=== PATIENT | male | born 1980 | race Caucasian/White ===

== ENCOUNTER 2016-08-01 14:24 | Emergency (ER) | payer OTHER ==
[~2016-08-01] VITALS: Ht 190.5 cm; Wt 132.7 kg
[~2016-08-01 14:24] MED LIST: ACETAMINOPHEN650 M7 PO; ALLOPURINOL100 MG PO; ALLOPURINOL300 MG PO; ATARAX,VISTARIL50 MG PO; BACTRIM,SEPT1 TABLET PO; BENTYL10 MG PO; BENTYL20 MG PO; CARAFATE1 GM PO; CLEOCIN300 MG PO; DESYREL100 MG PO; EFFEXOR; EFFEXOR XR150 MG PO; Effexor XR PO; FIORICET,ESG1 TABLET PO; HYDROCODON-ACE1 EA13; IBUPROFEN400 MG PO; IBUPROFEN600 MG PO; IBUPROFEN800 MG PO; LITHIUM; LITHIUM CARBON300 M1 PO; LODINE300 MG PO; LOSARTAN POTASS50 MG PO; METOPROLOL PO; MICARDIS40 MG PO; MOTRIN600 MG PO; MOTRIN800 MG PO; NAPROSYN500 MG PO; NORCO 5/3251 TABLET PO; NORFLEX100 MG; OMEPRAZOLE20 MG PO; OMEPRAZOLE40 M1 PO; PREDNISONE10 MG PO; PROMETHAZINE HC25 M1 PO; PROTONIX40 MG PO; RANITIDINE HCL150 MG PO; ROBITUSSIN AC,T10 ML PO; ROBITUSSIN COUGH; TEGRETOL200 MG PO; TRAMADOL HCL50 MG PO; TYLENOL REGULA325 MG PO; ULTRAM50 MG PO; VALIUM5 MG PO; VIBRAMYCIN100 MG PO; VICODIN 5-3001 EACH PO; VICODIN 5-5001 EACH PO; ZITHROMAX Z-PA250 MG PO; ZOFRAN ODT4 MG PO; ZOFRAN ODT8 MG PO; ZYLOPRIM100 MG PO
[2016-08-01 17:40] LABS: HEMATOCRIT 47.1 % (38.0-50.0); MCH 28.8 PG (29.0-34.0); MCHC 33.8 G/DL (30.0-36.0); MCV 85.3 FL (86-99); MEAN PLAT.VOLUME 9.8 uM^3 (9.0-12.4); PLATELET COUNT 208 K/uL (156-360); RBC DIS.WIDTH-CV 12.9 % (11.8-14.6); RBC DIS.WIDTH-SD 39.9 % (39-53); RED BLOOD COUNT 5.52 M/uL (4.00-5.50); WHITE BLOOD COUNT 8.7 K/uL (4.1-10.2)
[2016-08-01 17:49] LABS: CHLORIDE 102 mEq/L (99-109); POTASSIUM 3.8 mEq/L (3.7-5.4); SODIUM 139 mEq/L (136-147)
[2016-08-01 17:50] LABS: GLUCOSE 98 mg/dL (70-99)
[2016-08-01 17:52] LABS: ANION GAP 11 MEQ/L (2-14)
[2016-08-01 17:54] LABS: GFR ESTIMATE (CALCULATED) > 59 mL/min/
[2016-08-01 17:55] LABS: UREA NITROGEN (BUN) 15 mg/dL (9-23)
[2016-08-01 17:57] LABS: URIC ACID 6.4 mg/dL (3.1-9.2)
[2016-08-01] MEDS ORDERED: INDOCIN50 MG PO (18:08)
[2016-08-01 18:20] VITALS: BP 126/81
== END 2016-08-01 18:20 | disposition home or self-care (01) ==
LOC: EME 14:24
PROVIDERS: Physician Assistant
DX: M10.041 Idiopathic gout, right hand (principal); I10 Essential (primary) hypertension; Z87.891 Personal history of nicotine dependence
CPT/HCPCS: 73130; 80048; 84550; 85027; 99281; 99284

== ENCOUNTER 2016-08-10 16:05 | Emergency (ER) | payer OTHER ==
[~2016-08-10] VITALS: Ht 190.5 cm; Wt 132.8 kg
[~2016-08-10 16:05] MED LIST changes: +INDOCIN50 MG PO
[2016-08-10] MEDS ORDERED: MOTRIN600 MG PO (18:44)
[2016-08-10] MEDS ORDERED: BACLOFEN10 MG PO (18:44)
[2016-08-10 18:55] VITALS: BP 125/85
== END 2016-08-10 19:05 | disposition home or self-care (01) ==
LOC: EME 16:05
DX: M25.512 Pain in left shoulder (principal); I10 Essential (primary) hypertension; Z88.2 Allergy status to sulfonamides; Z88.0 Allergy status to penicillin
CPT/HCPCS: 99281; 99283; J1885

== ENCOUNTER 2016-09-06 12:03 | Emergency (ER) | payer OTHER ==
[~2016-09-06] VITALS: Ht 190.5 cm; Wt 133.2 kg
[~2016-09-06 12:03] MED LIST changes: +BACLOFEN10 MG PO
[2016-09-06 12:44] LABS: MCH 29.2 PG (29.0-34.0); MCHC 34.6 G/DL (30.0-36.0); MCV 84.4 FL (86-99); MEAN PLAT.VOLUME 9.5 uM^3 (9.0-12.4); PLATELET COUNT 235 K/uL (156-360); RBC DIS.WIDTH-CV 13.1 % (11.8-14.6); RBC DIS.WIDTH-SD 39.8 % (39-53); RED BLOOD COUNT 5.45 M/uL (4.00-5.50); WHITE BLOOD COUNT 7.9 K/uL (4.1-10.2)
[2016-09-06 12:56] LABS: CHLORIDE 107 mEq/L (99-109); SODIUM 139 mEq/L (136-147)
[2016-09-06 12:58] LABS: GLUCOSE 94 mg/dL (70-99)
[2016-09-06 12:59] LABS: ANION GAP 10 MEQ/L (2-14)
[2016-09-06 13:00] LABS: TOTAL BILIRUBIN 0.6 mg/dL (0.0-1.0)
[2016-09-06 13:01] LABS: ALKALINE PHOSPHATASE 68 IU/L (3-129)
[2016-09-06 13:02] LABS: GFR ESTIMATE (CALCULATED) > 59 mL/min/
[2016-09-06 13:03] LABS: UREA NITROGEN (BUN) 12 mg/dL (9-23)
[2016-09-06] MEDS ORDERED: MECLIZINE HCL25 MG PO (15:53)
[2016-09-06 16:03] VITALS: BP 133/85
== END 2016-09-06 16:05 | disposition home or self-care (01) ==
LOC: EME 12:03 → EXP 12:03
DX: R42 Dizziness and giddiness (principal); I10 Essential (primary) hypertension; Z88.2 Allergy status to sulfonamides; Z88.0 Allergy status to penicillin; Z88.6 Allergy status to analgesic agent; Z87.891 Personal history of nicotine dependence
CPT/HCPCS: 80053; 81003; 85027; 93005; 99281; 99284

== ENCOUNTER 2016-09-27 19:23 | Emergency (ER) | payer OTHER ==
[~2016-09-27] VITALS: Ht 190.5 cm; Wt 134.9 kg
[~2016-09-27 19:23] MED LIST changes: +MECLIZINE HCL25 MG PO
[2016-09-27] MEDS ORDERED: ROBITUSSIN DM118 ML PO (22:16)
[2016-09-27 22:31] VITALS: BP 127/58
== END 2016-09-27 22:43 | disposition home or self-care (01) ==
LOC: EME 19:23
DX: J06.9 Acute upper respiratory infection, unspecified (principal); I10 Essential (primary) hypertension; Z88.2 Allergy status to sulfonamides; Z88.0 Allergy status to penicillin; Z88.8 Allergy status to other drugs, medicaments and biological substances; Z88.5 Allergy status to narcotic agent; Z87.891 Personal history of nicotine dependence
CPT/HCPCS: 71020; 93005; 94640; 99281; 99284

== ENCOUNTER 2016-12-02 23:41 | Emergency (ER) | payer OTHER ==
[~2016-12-02] VITALS: Ht 190.5 cm; Wt 130.4 kg
[~2016-12-02 23:41] MED LIST changes: +ROBITUSSIN DM118 ML PO
[2016-12-03 00:55] VITALS: BP 118/82
[2016-12-03 00:55] LABS: ADD MIUA? NO; BILIRUBIN NEGATIVE; BLOOD NEGATIVE; COLOR YELLOW ((YELLOW)); GLUCOSE (STRIP) NEGATIVE; KETONES NEGATIVE; LEUKOCYTES NEGATIVE; NITRITE NEGATIVE; PROTEIN (STRIP) NEGATIVE; SPECIFIC GRAVITY 1.008 (1.000-1.030); UCUL ADDED? NO; UROBILINOGEN 0.2 MG/DL (0.2-1.0)
[2016-12-03 01:27] LABS: AMPHETAMINE NEGATIVE (500 ng/mL); BARBITURATES NEGATIVE (200 ng/mL); BENZODIAZEPINES NEGATIVE (150 ng/mL); COCAINE NEGATIVE (150 ng/mL); INTERNAL CONTROLS VALID? YES; METHADONE NEGATIVE (200 ng/mL); METHAMPHETAMINE NEGATIVE (500 ng/mL); OPIATES (MORPHINE) NEGATIVE (100 ng/mL); OXYCODONE NEGATIVE (100 ng/mL); PHENCYCLIDINE NEGATIVE (25 ng/mL); PROPOXYPHENE NEGATIVE (300 ng/mL); THC CANNABINOIDS NEGATIVE (50 ng/mL); TRICYCLIC ANTIDEPRESSANTS NEGATIVE (300 ng/mL)
== END 2016-12-03 00:59 | disposition home or self-care (01) ==
LOC: EME 23:41
PROVIDERS: Emergency Medicine
DX: F33.1 Major depressive disorder, recurrent, moderate (principal); R45.851 Suicidal ideations; I10 Essential (primary) hypertension; K21.9 Gastro-esophageal reflux disease without esophagitis; K58.9 Irritable bowel syndrome, unspecified; M10.9 Gout, unspecified; Z87.891 Personal history of nicotine dependence; Z88.0 Allergy status to penicillin
CPT/HCPCS: 80048; 81003; 85027; 90837; 99281; 99285; G0480

== ENCOUNTER 2017-01-13 20:55 | Emergency (ER) | payer OTHER ==
[~2017-01-13] VITALS: Ht 190.5 cm; Wt 129.2 kg
[2017-01-13 22:04] LABS: HEMATOCRIT 45.5 % (38.0-50.0); MCH 29.7 PG (29.0-34.0); MCHC 34.9 G/DL (30.0-36.0); MEAN PLAT.VOLUME 9.7 uM^3 (9.0-12.4); PLATELET COUNT 208 K/uL (156-360); RBC DIS.WIDTH-CV 12.6 % (11.8-14.6); RBC DIS.WIDTH-SD 38.8 % (39-53); RED BLOOD COUNT 5.35 M/uL (4.00-5.50); WHITE BLOOD COUNT 7.4 K/uL (4.1-10.2)
[2017-01-13 22:21] LABS: CHLORIDE 106 mEq/L (99-109); POTASSIUM 3.9 mEq/L (3.7-5.4); SODIUM 140 mEq/L (136-147)
[2017-01-13 22:23] LABS: GLUCOSE 112 mg/dL (70-99)
[2017-01-13 22:25] LABS: ANION GAP 9 MEQ/L (2-14); TOTAL BILIRUBIN 0.9 mg/dL (0.0-1.0)
[2017-01-13 22:27] LABS: ALKALINE PHOSPHATASE 63 IU/L (3-129); GFR ESTIMATE (CALCULATED) > 59 mL/min/
[2017-01-13 22:28] LABS: UREA NITROGEN (BUN) 15 mg/dL (9-23)
[2017-01-13 22:30] LABS: LIPASE 25 U/L (1.0-51.0)
[2017-01-13 22:32] LABS: ADD MIUA? NO; BILIRUBIN NEGATIVE; BLOOD NEGATIVE; COLOR YELLOW ((YELLOW)); GLUCOSE (STRIP) NEGATIVE; KETONES NEGATIVE; LEUKOCYTES NEGATIVE; NITRITE NEGATIVE; PROTEIN (STRIP) NEGATIVE; SPECIFIC GRAVITY 1.016 (1.000-1.030); UCUL ADDED? NO
[2017-01-14] MEDS ORDERED: BENTYL20 MG PO (01:08)
[2017-01-14] MEDS ORDERED: NORCO 5/3251 TABLET PO (01:22)
[2017-01-14 01:32] VITALS: BP 106/81
== END 2017-01-14 01:36 | disposition home or self-care (01) ==
LOC: EME 20:55
DX: R10.13 Epigastric pain (principal); R10.11 Right upper quadrant pain; M54.9 Dorsalgia, unspecified; I10 Essential (primary) hypertension; Z87.891 Personal history of nicotine dependence
CPT/HCPCS: 76705; 80053; 81003; 83690; 85027; 99281; 99284; J7030

== ENCOUNTER 2017-04-15 07:23 | Emergency (ER) | payer OTHER ==
[~2017-04-15] VITALS: Ht 190.5 cm; Wt 129.1 kg
[2017-04-15] MEDS ORDERED: VENTOLIN HFA18 GM IH (08:54)
[2017-04-15] MEDS ORDERED: TESSALON PERLE100 MG PO (08:57)
[2017-04-15 09:09] VITALS: BP 113/75
== END 2017-04-15 09:11 | disposition home or self-care (01) ==
LOC: EME 07:23
DX: J20.9 Acute bronchitis, unspecified (principal); R11.10 Vomiting, unspecified; I10 Essential (primary) hypertension; Z87.891 Personal history of nicotine dependence
CPT/HCPCS: 71020; 94640; 99281; 99284

== ENCOUNTER 2017-05-31 20:05 | Emergency (ER) | payer OTHER ==
[~2017-05-31] VITALS: Ht 190.5 cm; Wt 132.2 kg
[~2017-05-31 20:05] MED LIST changes: +TESSALON PERLE100 MG PO; +VENTOLIN HFA18 GM IH
[2017-05-31 21:10] LABS: HEMATOCRIT 44.8 % (38.0-50.0); HEMOGLOBIN 16.1 G/DL (12.5-16.6); MCH 30.4 PG (29.0-34.0); MCHC 35.9 G/DL (30.0-36.0); MCV 84.5 FL (86-99); PLATELET COUNT 207 K/uL (156-360); RBC DIS.WIDTH-CV 12.9 % (11.8-14.6); RBC DIS.WIDTH-SD 39.7 % (39-53); WHITE BLOOD COUNT 8.6 K/uL (4.1-10.2)
[2017-05-31 21:10] LABS: APPEARANCE CLEAR ((CLEAR)); BILIRUBIN NEGATIVE; BLOOD NEGATIVE; COLOR YELLOW ((YELLOW)); GLUCOSE (STRIP) NEGATIVE; KETONES NEGATIVE; LEUKOCYTES NEGATIVE; NITRITE NEGATIVE; PROTEIN (STRIP) NEGATIVE; SPECIFIC GRAVITY 1.027 (1.000-1.030); UCUL ADDED? NO
[2017-05-31 21:36] LABS: ALBUMIN 4.2 g/dL (3.2-4.8); CHLORIDE 107 mEq/L (99-109); SODIUM 138 mEq/L (136-147)
[2017-05-31 21:38] LABS: GLUCOSE 141 mg/dL (70-99); TOTAL PROTEIN 7.5 g/dL (6.4-8.3)
[2017-05-31 21:40] LABS: TOTAL BILIRUBIN 0.4 mg/dL (0.0-1.0)
[2017-05-31 21:42] LABS: ALKALINE PHOSPHATASE 68 IU/L (3-129); CREATININE 1.5 mg/dL (0.6-1.3); GFR ESTIMATE (CALCULATED) 56 mL/min/ (58.99-99999)
[2017-05-31 21:43] LABS: UREA NITROGEN (BUN) 18 mg/dL (9-23)
[2017-05-31 21:44] LABS: AST (GOT) 15 IU/L (2-34)
[2017-05-31 21:45] LABS: ALT (GPT) 32 IU/L (3-49); LIPASE 29 U/L (1.0-51.0)
[2017-06-01] MEDS ORDERED: ZOFRAN4 MG PO (01:29)
[2017-06-01] MEDS ORDERED: ZANTAC150 MG PO (01:29)
[2017-06-01 01:48] VITALS: BP 116/77
== END 2017-06-01 01:55 | disposition home or self-care (01) ==
LOC: EME 20:05 → EXP 20:05
DX: R10.11 Right upper quadrant pain (principal); M54.9 Dorsalgia, unspecified; R16.2 Hepatomegaly with splenomegaly, not elsewhere classified; K76.0 Fatty (change of) liver, not elsewhere classified; M43.16 Spondylolisthesis, lumbar region; M51.36 Other intervertebral disc degeneration, lumbar region; M51.44 Schmorl's nodes, thoracic region; I10 Essential (primary) hypertension; Z87.891 Personal history of nicotine dependence
CPT/HCPCS: 74177; 80053; 81003; 83690; 85027; 99281; 99285; J1885; J2405; J7120; S0028

== ENCOUNTER 2017-08-17 19:03 | Emergency (ER) | payer OTHER ==
[~2017-08-17] VITALS: Ht 190.5 cm; Wt 129.9 kg
[~2017-08-17 19:03] MED LIST changes: +ZANTAC150 MG PO; +ZOFRAN4 MG PO
[2017-08-17] MEDS ORDERED: PEPCID40 MG PO (19:32)
[2017-08-17] MEDS ORDERED: PREDNISONE20 MG PO (19:32)
[2017-08-17 19:43] VITALS: BP 125/73
== END 2017-08-17 19:44 | disposition home or self-care (01) ==
LOC: EME → EDBD 19:03 → EME 19:03
DX: L50.9 Urticaria, unspecified (principal); K21.9 Gastro-esophageal reflux disease without esophagitis; I10 Essential (primary) hypertension; F32.9 Major depressive disorder, single episode, unspecified; K58.9 Irritable bowel syndrome, unspecified; Z87.891 Personal history of nicotine dependence; Z88.2 Allergy status to sulfonamides; Z88.0 Allergy status to penicillin; Z88.5 Allergy status to narcotic agent
CPT/HCPCS: 93005; 99281; 99284; J1200; J7512

== ENCOUNTER 2017-09-05 09:24 | Emergency (ER) | payer OTHER ==
[~2017-09-05] VITALS: Ht 190.5 cm; Wt 132.3 kg
[~2017-09-05 09:24] MED LIST changes: +PEPCID40 MG PO; +PREDNISONE20 MG PO
[2017-09-05 10:37] LABS: HEMATOCRIT 44.9 % (38.0-50.0); HEMOGLOBIN 16.2 G/DL (12.5-16.6); MCH 30.5 PG (29.0-34.0); MCHC 36.1 G/DL (30.0-36.0); MCV 84.6 FL (86-99); PLATELET COUNT 217 K/uL (156-360); RBC DIS.WIDTH-CV 12.8 % (11.8-14.6); RBC DIS.WIDTH-SD 39.1 % (39-53); RED BLOOD COUNT 5.31 M/uL (4.00-5.50)
[2017-09-05 10:52] LABS: CHLORIDE 108 mEq/L (99-109); POTASSIUM 3.8 mEq/L (3.7-5.4); SODIUM 141 mEq/L (136-147)
[2017-09-05 10:54] LABS: GLUCOSE 130 mg/dL (70-99)
[2017-09-05 10:58] LABS: CREATININE 1.2 mg/dL (0.6-1.3); GFR ESTIMATE (CALCULATED) > 59 mL/min/ (58.99-99999); UREA NITROGEN (BUN) 12 mg/dL (9-23)
[2017-09-05 11:33] LABS: ALBUMIN 4.4 g/dL (3.2-4.8)
[2017-09-05 11:36] LABS: TOTAL PROTEIN 7.7 g/dL (6.4-8.3)
[2017-09-05 11:38] LABS: TOTAL BILIRUBIN 0.8 mg/dL (0.0-1.0)
[2017-09-05 11:39] LABS: ALKALINE PHOSPHATASE 74 IU/L (3-129)
[2017-09-05 11:41] LABS: AST (GOT) 15 IU/L (2-34); DIRECT BILIRUBIN 0.3 mg/dL (0.0-0.3)
[2017-09-05 11:42] LABS: ALT (GPT) 26 IU/L (3-49); LIPASE 105 U/L (1.0-51.0)
[2017-09-05 11:46] LABS: TROP-I INTERPRETATION NEGATIVE; TROPONIN-I < 0.01 ng/mL (0.0-0.30)
[2017-09-05 12:59] LABS: TROP-I INTERPRETATION NEGATIVE; TROPONIN-I 0.01 ng/mL (0.0-0.30)
[2017-09-05] MEDS ORDERED: LEVSIN-SL0.125 MG SL (13:26)
[2017-09-05] MEDS ORDERED: ZOFRAN ODT4 MG PO (13:26)
[2017-09-05 13:44] VITALS: BP 108/78
== END 2017-09-05 13:55 | disposition home or self-care (01) ==
LOC: EME 09:24 → RME 09:24
PROVIDERS: Nurse Practitioner Family
DX: K85.90 Acute pancreatitis without necrosis or infection, unspecified (principal); R05 Cough; R19.7 Diarrhea, unspecified; I10 Essential (primary) hypertension; Z88.0 Allergy status to penicillin; Z88.2 Allergy status to sulfonamides; Z87.891 Personal history of nicotine dependence
CPT/HCPCS: 71046; 80048; 80076; 83690; 84484; 85027; 93005; 99281; 99284

== ENCOUNTER 2017-10-26 08:27 | Emergency (ER) | payer OTHER ==
[~2017-10-26] VITALS: Ht 190.5 cm; Wt 131.6 kg
[~2017-10-26 08:27] MED LIST changes: +LEVSIN-SL0.125 MG SL
[2017-10-26 09:03] LABS: BASOPHIL (%) 0.6 % (0-1); EOSINOPHIL (%) 2.7 % (0-5); EOSINOPHIL COUNT 0.2 K/uL (0-0.3); HEMATOCRIT 42.9 % (38.0-50.0); HEMOGLOBIN 15.5 G/DL (12.5-16.6); IMMATURE GRANULOCYTE (%) 0.6 % (0.0-0.7); LYMPHOCYTE (%) 28.7 % (15-42); LYMPHOCYTE COUNT 1.8 K/uL (1.0-2.8); MCH 30.9 PG (29.0-34.0); MCHC 36.1 G/DL (30.0-36.0); MCV 85.6 FL (86-99); MONOCYTE (%) 6.4 % (3-12); MONOCYTE COUNT 0.4 K/uL (0-0.8); NEUTROPHIL COUNT 3.8 K/uL (1.8-6.4); PLATELET COUNT 201 K/uL (156-360); RBC DIS.WIDTH-CV 12.8 % (11.8-14.6); RBC DIS.WIDTH-SD 39.4 % (39-53); RED BLOOD COUNT 5.01 M/uL (4.00-5.50); WHITE BLOOD COUNT 6.2 K/uL (4.1-10.2)
[2017-10-26 09:12] LABS: CHLORIDE 109 mEq/L (99-109); POTASSIUM 3.7 mEq/L (3.7-5.4); SODIUM 141 mEq/L (136-147)
[2017-10-26 09:14] LABS: GLUCOSE 128 mg/dL (70-99); TOTAL PROTEIN 6.7 g/dL (6.4-8.3)
[2017-10-26 09:16] LABS: TOTAL BILIRUBIN 0.5 mg/dL (0.0-1.0)
[2017-10-26 09:18] LABS: ALKALINE PHOSPHATASE 67 IU/L (3-129); CREATININE 1.3 mg/dL (0.6-1.3); GFR ESTIMATE (CALCULATED) > 59 mL/min/ (58.99-99999)
[2017-10-26 09:19] LABS: UREA NITROGEN (BUN) 11 mg/dL (9-23)
[2017-10-26 09:20] LABS: AST (GOT) 16 IU/L (2-34)
[2017-10-26 09:21] LABS: ALT (GPT) 34 IU/L (3-49); LIPASE 25 U/L (1.0-51.0)
[2017-10-26] MEDS ORDERED: ZOFRAN ODT4 MG PO (10:10)
[2017-10-26] MEDS ORDERED: BENTYL20 MG PO (10:10)
[2017-10-26 10:28] LABS: APPEARANCE CLEAR ((CLEAR)); BILIRUBIN NEGATIVE; BLOOD NEGATIVE; COLOR YELLOW ((YELLOW)); GLUCOSE (STRIP) NEGATIVE; KETONES NEGATIVE; LEUKOCYTES NEGATIVE; NITRITE NEGATIVE; PROTEIN (STRIP) NEGATIVE; SPECIFIC GRAVITY 1.019 (1.000-1.030); UROBILINOGEN 0.2 MG/DL (0.2-1.0)
[2017-10-26 10:48] VITALS: BP 130/70
== END 2017-10-26 10:56 | disposition home or self-care (01) ==
LOC: EME 08:27
PROVIDERS: Emergency Medicine
DX: R10.9 Unspecified abdominal pain (principal); R11.2 Nausea with vomiting, unspecified; I10 Essential (primary) hypertension; Z87.891 Personal history of nicotine dependence
CPT/HCPCS: 80053; 81003; 83690; 85025; 99281; 99285; J1885; J2405; J7030

== ENCOUNTER 2017-10-30 00:23 | Emergency (ER) | payer OTHER ==
[~2017-10-30] VITALS: Ht 190.5 cm; Wt 128.6 kg
[2017-10-30 00:48] LABS: HEMATOCRIT 43.5 % (38.0-50.0); HEMOGLOBIN 15.8 G/DL (12.5-16.6); MCHC 36.3 G/DL (30.0-36.0); MCV 85.5 FL (86-99); PLATELET COUNT 194 K/uL (156-360); RBC DIS.WIDTH-SD 40.2 % (39-53); RED BLOOD COUNT 5.09 M/uL (4.00-5.50); WHITE BLOOD COUNT 9.8 K/uL (4.1-10.2)
[2017-10-30 00:56] LABS: ALBUMIN 4.1 g/dL (3.2-4.8); CHLORIDE 106 mEq/L (99-109); POTASSIUM 3.8 mEq/L (3.7-5.4); SODIUM 138 mEq/L (136-147)
[2017-10-30 00:58] LABS: GLUCOSE 184 mg/dL (70-99)
[2017-10-30 01:00] LABS: TOTAL BILIRUBIN 0.6 mg/dL (0.0-1.0)
[2017-10-30 01:02] LABS: ALKALINE PHOSPHATASE 66 IU/L (3-129); CREATININE 1.4 mg/dL (0.6-1.3); GFR ESTIMATE (CALCULATED) > 59 mL/min/ (58.99-99999)
[2017-10-30 01:03] LABS: UREA NITROGEN (BUN) 16 mg/dL (9-23)
[2017-10-30 01:04] LABS: AST (GOT) 14 IU/L (2-34)
[2017-10-30 01:05] LABS: ALT (GPT) 38 IU/L (3-49); LIPASE 31 U/L (1.0-51.0)
[2017-10-30 03:53] VITALS: BP 105/59
== END 2017-10-30 03:55 | disposition home or self-care (01) ==
LOC: EME 00:23
DX: R10.11 Right upper quadrant pain (principal); R11.2 Nausea with vomiting, unspecified; K76.0 Fatty (change of) liver, not elsewhere classified; I10 Essential (primary) hypertension; Z87.891 Personal history of nicotine dependence; Z88.2 Allergy status to sulfonamides; Z88.0 Allergy status to penicillin
CPT/HCPCS: 76705; 80053; 81003; 83690; 85027; 93005; 99281; 99285; J3010; J7030

== ENCOUNTER 2017-12-08 19:09 | Emergency (ER) | payer OTHER ==
[~2017-12-08] VITALS: Ht 190.5 cm; Wt 132.5 kg
[2017-12-08 19:42] LABS: HEMATOCRIT 41.4 % (38.0-50.0); HEMOGLOBIN 14.9 G/DL (12.5-16.6); MCH 30.1 PG (29.0-34.0); MCV 83.6 FL (86-99); PLATELET COUNT 210 K/uL (156-360); RBC DIS.WIDTH-CV 12.4 % (11.8-14.6); RBC DIS.WIDTH-SD 37.4 % (39-53); RED BLOOD COUNT 4.95 M/uL (4.00-5.50); WHITE BLOOD COUNT 7.4 K/uL (4.1-10.2)
[2017-12-08 19:53] LABS: CHLORIDE 108 mEq/L (99-109); POTASSIUM 3.6 mEq/L (3.7-5.4); SODIUM 139 mEq/L (136-147)
[2017-12-08 19:54] LABS: GLUCOSE 136 mg/dL (70-99)
[2017-12-08 19:58] LABS: CREATININE 1.2 mg/dL (0.6-1.3); GFR ESTIMATE (CALCULATED) > 59 mL/min/ (58.99-99999)
[2017-12-08 19:59] LABS: UREA NITROGEN (BUN) 16 mg/dL (9-23)
[2017-12-08 20:03] LABS: TROP-I INTERPRETATION NEGATIVE; TROPONIN-I < 0.01 ng/mL (0.0-0.30)
[2017-12-08 20:15] VITALS: BP 142/67
== END 2017-12-08 22:29 | disposition left against medical advice (07) ==
LOC: EME 19:09
PROVIDERS: Nurse Practitioner Family
DX: R42 Dizziness and giddiness (principal); R07.9 Chest pain, unspecified; I10 Essential (primary) hypertension; K21.9 Gastro-esophageal reflux disease without esophagitis; K58.9 Irritable bowel syndrome, unspecified; F32.9 Major depressive disorder, single episode, unspecified; Z87.891 Personal history of nicotine dependence; Z88.2 Allergy status to sulfonamides; Z88.0 Allergy status to penicillin; Z88.5 Allergy status to narcotic agent
CPT/HCPCS: 71046; 80048; 84484; 85027; 93005; 99281; 99284

== ENCOUNTER 2018-01-03 21:48 | Emergency (ER) | payer OTHER ==
[~2018-01-03] VITALS: Ht 190.5 cm; Wt 133.2 kg
[2018-01-03 22:26] LABS: HEMATOCRIT 46.6 % (38.0-50.0); HEMOGLOBIN 16.8 G/DL (12.5-16.6); MCH 30.1 PG (29.0-34.0); MCHC 36.1 G/DL (30.0-36.0); MCV 83.4 FL (86-99); PLATELET COUNT 227 K/uL (156-360); RBC DIS.WIDTH-CV 12.8 % (11.8-14.6); RBC DIS.WIDTH-SD 38.3 % (39-53); RED BLOOD COUNT 5.59 M/uL (4.00-5.50)
[2018-01-03 22:32] LABS: APPEARANCE CLEAR ((CLEAR)); BILIRUBIN NEGATIVE; BLOOD NEGATIVE; COLOR YELLOW ((YELLOW)); GLUCOSE (STRIP) NEGATIVE; KETONES NEGATIVE; LEUKOCYTES NEGATIVE; NITRITE NEGATIVE; PROTEIN (STRIP) NEGATIVE; SPECIFIC GRAVITY 1.023 (1.000-1.030); UCUL ADDED? NO; UROBILINOGEN 0.2 MG/DL (0.2-1.0)
[2018-01-03 22:37] LABS: ALBUMIN 4.6 g/dL (3.2-4.8); CHLORIDE 108 mEq/L (99-109)
[2018-01-03 22:38] LABS: SODIUM 141 mEq/L (136-147)
[2018-01-03 22:40] LABS: GLUCOSE 107 mg/dL (70-99); TOTAL PROTEIN 7.9 g/dL (6.4-8.3)
[2018-01-03 22:44] LABS: ALKALINE PHOSPHATASE 67 IU/L (3-129); CREATININE 1.2 mg/dL (0.6-1.3); GFR ESTIMATE (CALCULATED) > 59 mL/min/ (58.99-99999)
[2018-01-03 22:45] LABS: AST (GOT) 21 IU/L (2-34); UREA NITROGEN (BUN) 13 mg/dL (9-23)
[2018-01-03 22:47] LABS: ALT (GPT) 40 IU/L (3-49)
[2018-01-04 01:24] LABS: LIPASE 17 U/L (1.0-51.0)
[2018-01-04] MEDS ORDERED: ULTRAM50 MG PO (02:22)
[2018-01-04] MEDS ORDERED: ZOFRAN ODT4 MG PO (02:22)
[2018-01-04 02:30] VITALS: BP 136/74
== END 2018-01-04 02:33 | disposition home or self-care (01) ==
LOC: EME 21:48
DX: R10.11 Right upper quadrant pain (principal); K76.0 Fatty (change of) liver, not elsewhere classified; I10 Essential (primary) hypertension; K21.9 Gastro-esophageal reflux disease without esophagitis; K58.9 Irritable bowel syndrome, unspecified; G43.909 Migraine, unspecified, not intractable, without status migrainosus; F32.9 Major depressive disorder, single episode, unspecified; Z87.891 Personal history of nicotine dependence; Z87.19 Personal history of other diseases of the digestive system; Z87.81 Personal history of (healed) traumatic fracture; Z88.0 Allergy status to penicillin; Z88.2 Allergy status to sulfonamides
CPT/HCPCS: 76705; 80053; 81003; 83690; 85027; 99281; 99284